=== PATIENT | female | born 2000 | race Caucasian/White ===

== ENCOUNTER 2024-10-21 09:56 | Inpatient (IN) ==
[2024-10-21] MEDS: PIPERACILLIN SODIUM/TAZOBACTAM 3.375 GM in DEXTROSE 5% IN WATER 50 ML IV SCH (11:25)
[2024-10-21] MEDS: DEXTROSE 5%-NS 1,000 ML IV SCH (11:25)
[2024-10-21 11:35] LABS: C-Reactive Protein 2.77 mg/dL (0.03-0.80)
[2024-10-21 11:39] LABS: ALT/SGPT 22 U/L (<40); AST/SGOT 19 U/L (<32); Albumin 3.8 gm/dL (3.2-5.2); Albumin/Globulin Ratio 1.3 (1.0-2.3); Alkaline Phosphatase 98 U/L (39-117); Bilirubin,Direct < 0.2 mg/dL (0-0.3); Bilirubin,Total 0.4 mg/dL (0.1-1.0); Blood Urea Nitrogen 3 mg/dL (6-20); Carbon Dioxide 26 mmol/L (22-30); Chloride 102 mmol/L (96-108); Glomerular Filtration Rate 134; Glucose 92 mg/dL (70-105); Lactate Dehydrogenase 187 U/L (135-225); Phosphorous 2.6 mg/dL (2.5-4.5); Potassium 2.9 mmol/L (3.3-5.1); Sodium 142 mmol/L (133-145); Triglycerides 91 mg/dL (<150)
[2024-10-21] MEDS: PROMETHAZINE 25 MG TABLET PO PRN (11:58)
[2024-10-21] MEDS: ONDANSETRON 4 MG/2 ML VIAL IV PRN (11:58)
[2024-10-21] MEDS: POTASSIUM CHLORIDE 40 MEQ in DEXTROSE 5% IN WATER 500 ML IV SCH (13:17)
[2024-10-21] MEDS: POTASSIUM CHLORIDE 10 MEQ/100 ML BAG IV SCH (14:02)
[2024-10-21] MEDS: 0.9 % SODIUM CHLORIDE 10 ML SYRINGE IV SCH (14:03)
[2024-10-21] MEDS: HYDROmorphone 0.5 MG/0.5 ML SYRINGE IV PRN (14:49)
[2024-10-21] MEDS: PIPERACILLIN SODIUM/TAZOBACTAM 3.375 GM in DEXTROSE 5% IN WATER 100 ML IV SCH (16:29)
[2024-10-21] MEDS: oxyCODONE IR 5 MG TABLET PO PRN (18:36)
[2024-10-21] MEDS: DOCUSATE SODIUM 100 MG CAPSULE PO SCH (20:09)
[2024-10-21] MEDS: SENNOSIDES 1 TABLET PO SCH (20:09)
[2024-10-22 06:06] LABS: Basophils # (Auto) 0.02 K/mcL (0.00-0.30); Basophils % (Auto) 0.4 % (0.0-2.0); Eosinophils # (Auto) 0.09 K/mcL (0.00-0.70); Eosinophils % (Auto) 1.8 % (0.0-7.0); Hematocrit 36.5 % (34.1-44.9); Hemoglobin 11.7 g/dL (11.2-15.7); Lymphocytes # (Auto) 2.74 K/mcL (1.50-4.80); Lymphocytes % (Auto) 53.7 % (15.5-49.0); Mean Cell Volume 87.5 fL (80.0-100.0); Mean Corpuscular HGB Conc 32.1 g/dL (31.0-36.0); Mean Platelet Volume 10.5 fL (8.8-12.5); Monocytes # (Auto) 0.44 K/mcL (0.10-0.90); Monocytes % (Auto) 8.6 % (1.0-12.0); Neutrophils % (Auto) 35.5 % (38.0-78.0); Platelet Count 246 K/mcL (140-440); RBC 4.17 M/mcL (3.59-5.38); Red Cell Distribution Width 14.2 % (11.5-14.5); WBC 5.1 K/mcL (4.5-11.0)
[2024-10-22 08:01] LABS: ALT/SGPT 42 U/L (<40); AST/SGOT 63 U/L (<32); Albumin 3.4 gm/dL (3.2-5.2); Albumin/Globulin Ratio 1.2 (1.0-2.3); Alkaline Phosphatase 93 U/L (39-117); Bilirubin,Total 0.3 mg/dL (0.1-1.0); Blood Urea Nitrogen < 2 mg/dL (6-20); Calcium 8.9 mg/dL (8.6-10.4); Carbon Dioxide 26 mmol/L (22-30); Chloride 105 mmol/L (96-108); Globulin 2.8 gm/dL (2.2-3.7); Glomerular Filtration Rate 126; Glucose 128 mg/dL (70-105); Potassium 3.2 mmol/L (3.3-5.1); Sodium 140 mmol/L (133-145)
[2024-10-22] MEDS ORDERED: fentaNYL 100 MCG/2 ML VIAL ONE (08:30)
[2024-10-22] MEDS ORDERED: KETAMINE 50 MG/ML ML ONE (08:30)
[2024-10-22] MEDS ORDERED: PROPOFOL 200 MG/20 ML VIAL IV ONE (08:30)
[2024-10-22] MEDS ORDERED: DEXAMETHASONE 10 MG/ML VIAL ONE (08:39)
[2024-10-22] MEDS ORDERED: MAGNESIUM SULFATE 2 GM/50 ML BAG IV ONE (08:39)
[2024-10-22] MEDS ORDERED: ROCURONIUM 10 MG/ML ML IV ONE (08:39)
[2024-10-22] MEDS ORDERED: LIDOCAINE 2% PF 5 ML VIAL ONE (08:39)
[2024-10-22] MEDS ORDERED: ONDANSETRON 4 MG/2 ML VIAL ONE (08:39)
[2024-10-22] MEDS ORDERED: IPRATROPIUM/ALBUTEROL 3 ML AMPUL.NEB NEB PRN (10:04)
[2024-10-22] MEDS ORDERED: HYDROmorphone 0.5 MG/0.5 ML SYRINGE IV PRN (10:04)
[2024-10-22] MEDS ORDERED: diphenhydrAMINE 50 MG/ML VIAL IV PRN (10:04)
[2024-10-22] MEDS ORDERED: METHOCARBAMOL 1,000 MG/10 ML VIAL IV PRN (10:04)
[2024-10-22] MEDS ORDERED: ONDANSETRON 4 MG/2 ML VIAL IV PRN (10:04)
[2024-10-22] MEDS ORDERED: LACTATED RINGERS 250 ML IV PRN (10:04)
[2024-10-22] MEDS ORDERED: MEPERIDINE 25 MG/ML VIAL IV PRN (10:04)
[2024-10-22] MEDS ORDERED: NALOXONE HCL 0.4 MG/ML VIAL IV PRN (10:04)
[2024-10-22] MEDS ORDERED: SUGAMMADEX SODIUM 200 MG/2 ML VIAL IV ONE (10:11)
[2024-10-22] MEDS: LACTATED RINGERS 1,000 ML IV SCH (10:37)
[2024-10-22] MEDS: ACETAMINOPHEN 1,000 MG/100 ML BAG IV ONE (10:38)
[2024-10-22] MEDS: KETOROLAC 30 MG/ML VIAL IV PRN (10:56)
[2024-10-22] MEDS: fentaNYL 100 MCG/2 ML VIAL IV PRN (10:56)
[2024-10-22] MEDS: POTASSIUM CHLORIDE 20 MEQ TABLET PO SCH (17:31)
[2024-10-22] MEDS ORDERED: POTASSIUM CHLORIDE 40 MEQ in DEXTROSE 5% IN WATER 500 ML IV SCH (17:45)
[2024-10-22] MEDS: POTASSIUM CHLORIDE 10 MEQ/100 ML BAG IV SCH (18:40)
[2024-10-22] MEDS: METOCLOPRAMIDE 10 MG/2 ML VIAL IV PRN (19:16)
[2024-10-22] MEDS ORDERED: ALBUTEROL SULFATE 60 PUFF INHALER INH PRN (20:35)
[2024-10-22] MEDS ORDERED: hydrOXYzine 25 MG TABLET PO PRN (21:09)
[2024-10-22] MEDS: PRAZOSIN 2 MG CAPSULE PO SCH (21:56)
[2024-10-22] MEDS: QUETIAPINE 200 MG PO SCH (21:59)
[2024-10-22] MEDS: GABAPENTIN 100 MG CAPSULE PO SCH (22:09)
[2024-10-22] MEDS: SUCRALFATE 1 GM/10 ML ORAL.SUSP PO SCH (23:48)
[2024-10-23] MEDS ORDERED: SUCRALFATE 1 GM/10 ML ORAL.SUSP PO SCH
[2024-10-23] MEDS: POTASSIUM CHLORIDE 10 MEQ/100 ML BAG IV SCH ×2 (05:32→17:00)
[2024-10-23 06:39] LABS: Basophils # (Auto) 0.01 K/mcL (0.00-0.30); Basophils % (Auto) 0.1 % (0.0-2.0); Eosinophils # (Auto) 0 K/mcL (0.00-0.70); Eosinophils % (Auto) 0 % (0.0-7.0); Hematocrit 37.9 % (34.1-44.9); Hemoglobin 12.2 g/dL (11.2-15.7); Lymphocytes # (Auto) 1.27 K/mcL (1.50-4.80); Lymphocytes % (Auto) 14.8 % (15.5-49.0); Mean Cell Volume 87.1 fL (80.0-100.0); Mean Corpuscular HGB Conc 32.2 g/dL (31.0-36.0); Mean Platelet Volume 10.6 fL (8.8-12.5); Monocytes # (Auto) 0.66 K/mcL (0.10-0.90); Monocytes % (Auto) 7.7 % (1.0-12.0); Neutrophils % (Auto) 77.2 % (38.0-78.0); Platelet Count 275 K/mcL (140-440); RBC 4.35 M/mcL (3.59-5.38); Red Cell Distribution Width 14.4 % (11.5-14.5); WBC 8.6 K/mcL (4.5-11.0)
[2024-10-23 07:13] LABS: ALT/SGPT 48 U/L (<40); AST/SGOT 43 U/L (<32); Albumin 3.7 gm/dL (3.2-5.2); Albumin/Globulin Ratio 1.2 (1.0-2.3); Alkaline Phosphatase 99 U/L (39-117); Bilirubin,Direct < 0.2 mg/dL (0-0.3); Bilirubin,Total 0.3 mg/dL (0.1-1.0); Blood Urea Nitrogen < 2 mg/dL (6-20); Calcium 9.3 mg/dL (8.6-10.4); Carbon Dioxide 24 mmol/L (22-30); Chloride 105 mmol/L (96-108); Glomerular Filtration Rate 134; Glucose 151 mg/dL (70-105); Lactate Dehydrogenase 201 U/L (135-225); Phosphorous 2.2 mg/dL (2.5-4.5); Potassium 3.4 mmol/L (3.3-5.1); Sodium 140 mmol/L (133-145); Triglycerides 65 mg/dL (<150); Uric Acid 1.8 mg/dL (2.5-8.0)
[2024-10-23] MEDS: PANTOPRAZOLE 40 MG VIAL IV SCH (07:59)
[2024-10-23] MEDS: PROMETHAZINE 25 MG/ML VIAL IM ONE (07:59)
[2024-10-23] MEDS: SCOPOLAMINE 1 PATCH PATCH TOPICAL ONE (08:00)
[2024-10-23] MEDS: MIRTAZAPINE 15 MG TABLET PO SCH (08:01)
[2024-10-23] MEDS: ESCITALOPRAM 20 MG TABLET PO SCH (08:01)
[2024-10-23] MEDS: NICOTINE 14 MG PATCH TD SCH (08:38)
[2024-10-23] MEDS: QUEtiapine 100 MG TABLET PO SCH (20:54)
[2024-10-23] MEDS: PRAZOSIN 1 MG CAPSULE PO SCH (20:55)
[2024-10-24] MEDS: POTASSIUM CHLORIDE 10 MEQ/100 ML BAG IV SCH ×2 (06:23→11:14)
[2024-10-24 09:54] LABS: Potassium 3.1 mmol/L (3.3-5.1)
[2024-10-25] MEDS ORDERED: MIDAZOLAM 2 MG/2 ML VIAL ONE (08:36)
[2024-10-25] MEDS ORDERED: fentaNYL 100 MCG/2 ML VIAL ONE (08:36)
[2024-10-25] MEDS ORDERED: PROPOFOL 200 MG/20 ML VIAL IV ONE (10:25)
[2024-10-25] MEDS ORDERED: ONDANSETRON 4 MG/2 ML VIAL IV ONE (10:25)
== END 2024-10-26 13:29 | disposition home or self-care (01) | DRG 418 ==
LOC: MEDSUR → OBSVTOIN 10:09
PROVIDERS: ADMIT Family Medicine Adult Medicine; ATTEND Family Medicine Adult Medicine

== ENCOUNTER 2024-12-27 11:52 | Inpatient (IN) ==
[2024-12-27] MEDS: 0.9 % SODIUM CHLORIDE 1,000 ML IV ONE (12:49)
[2024-12-27 13:02] LABS: Basophils # (Auto) 0.01 K/mcL (0.00-0.30); Basophils % (Auto) 0.2 % (0.0-2.0); Eosinophils # (Auto) 0.02 K/mcL (0.00-0.70); Eosinophils % (Auto) 0.5 % (0.0-7.0); Hematocrit 40.2 % (34.1-44.9); Hemoglobin 13.9 g/dL (11.2-15.7); Lymphocytes # (Auto) 1.74 K/mcL (1.50-4.80); Lymphocytes % (Auto) 42.8 % (15.5-49.0); Mean Cell Volume 83.2 fL (80.0-100.0); Mean Corpuscular HGB Conc 34.6 g/dL (31.0-36.0); Mean Platelet Volume 9.6 fL (8.8-12.5); Monocytes # (Auto) 0.34 K/mcL (0.10-0.90); Monocytes % (Auto) 8.4 % (1.0-12.0); Neutrophils % (Auto) 48.1 % (38.0-78.0); Platelet Count 229 K/mcL (140-440); RBC 4.83 M/mcL (3.59-5.38); Red Cell Distribution Width 14.3 % (11.5-14.5); WBC 4.1 K/mcL (4.5-11.0)
[2024-12-27] MEDS: DROPERIDOL 5 MG/2 ML VIAL IV ONE ×2 (13:16→14:54)
[2024-12-27 13:23] LABS: ALT/SGPT 76 U/L (<40); AST/SGOT 58 U/L (<32); Albumin 3.9 gm/dL (3.2-5.2); Albumin/Globulin Ratio 1.3 (1.0-2.3); Alkaline Phosphatase 91 U/L (39-117); Bilirubin,Total 0.7 mg/dL (0.1-1.0); Blood Urea Nitrogen 4 mg/dL (6-20); Calcium 9.2 mg/dL (8.6-10.4); Carbon Dioxide 22 mmol/L (22-30); Chloride 96 mmol/L (96-108); Globulin 2.9 gm/dL (2.2-3.7); Glomerular Filtration Rate 134; Glucose 80 mg/dL (70-105); Potassium 2.5 mmol/L (3.3-5.1); Sodium 140 mmol/L (133-145)
[2024-12-27] MEDS: POTASSIUM CHLORIDE 40 MEQ in DEXTROSE 5% IN WATER 500 ML IV ONE ×2 (13:32→19:42)
[2024-12-27] MEDS: POTASSIUM CHLORIDE 10 MEQ/100 ML BAG IV SCH (13:52)
[2024-12-27] MEDS: MAGNESIUM SULFATE 2 GM/50 ML BAG IV ONE (13:59)
[2024-12-27 14:06] LABS: Appearance,Urine Clear (Clear); Bacteria,Urine Few /hpf (0); Bilirubin,Urine Negative (Negative); Color,Urine Yellow; Glucose,Urine (UA) Negative (Negative); Ketones,Urine >=160 mg/dL (Negative); Leukocyte Esterase,Urine Negative /uL (Negative); Mucus,Urine Few /hpf; Nitrate,Urine Negative (Negative); PH,Urine 6.5 (5.0-9.0); Protein,Urine 30 mg/dL (Negative); Specific Gravity,Urine >= 1.030 (1.000-1.035); Urine Blood Negative ery/mcL (Negative); Urine Hyaline Cast 11 /lph (0-2); Urine RBC 2 /hpf (0-3); Urine Squamous Epithelial Cell 38 /hpf (0-4); Urine WBC 22 /hpf (0-4); Urobilinogen,Urine Normal
[2024-12-27] MEDS: PANTOPRAZOLE 40 MG VIAL IV ONE (14:55)
[2024-12-27] MEDS: DEXTROSE 5%-1/2NS 1,000 ML IV SCH (15:02)
[2024-12-27] MEDS: MAG HYDROX/AL HYDROX/SIMETH 30 ML ORAL.SUSP PO ONE (16:05)
[2024-12-27] MEDS: diphenhydrAMINE 50 MG/ML VIAL IV ONE (17:01)
[2024-12-27] MEDS: PROCHLORPERAZINE 10 MG/2 ML VIAL IV ONE ×2 (17:01→18:26)
[2024-12-27] MEDS: FAMOTIDINE 20 MG TABLET PO ONE (17:48)
[2024-12-27] MEDS: POTASSIUM CHLORIDE 20 MEQ TABLET PO ONE (17:48)
[2024-12-27] MEDS: LORazepam 2 MG/ML VIAL IV ONE (18:26)
[2024-12-27 21:11] LABS: C-Reactive Protein < 0.30 mg/dL (0.03-0.80)
[2024-12-27] MEDS: POTASSIUM CHLORIDE 20 MEQ/10 ML VIAL IV ONE (21:20)
[2024-12-27] MEDS ORDERED: POTASSIUM CHLORIDE 20 MEQ TABLET PO PRN ×2 (21:28)
[2024-12-27] MEDS ORDERED: IPRATROPIUM/ALBUTEROL 3 ML AMPUL.NEB NEB PRN (21:28)
[2024-12-27] MEDS ORDERED: POTASSIUM CHLORIDE 40 MEQ in DEXTROSE 5% IN WATER 500 ML IV PRN (21:28)
[2024-12-27] MEDS ORDERED: ACETAMINOPHEN 325 MG TABLET PO PRN (21:28)
[2024-12-27] MEDS ORDERED: SENNOSIDES 1 TABLET PO PRN (21:28)
[2024-12-27] MEDS: PANTOPRAZOLE 40 MG VIAL IV SCH (21:55)
[2024-12-27] MEDS: ONDANSETRON 4 MG/2 ML VIAL IV PRN (21:55)
[2024-12-27] MEDS: diphenhydrAMINE 50 MG/ML VIAL IV PRN (21:55)
[2024-12-27] MEDS: SCOPOLAMINE 1 PATCH PATCH TOPICAL SCH (21:55)
[2024-12-27] MEDS: 0.9 % SODIUM CHLORIDE 10 ML SYRINGE IV SCH (21:56)
[2024-12-27] MEDS: ACETAMINOPHEN 650 MG/65 ML BAG IV PRN (22:46)
[2024-12-27] MEDS: KETOROLAC 15 MG/ML VIAL IV ONE (22:46)
[2024-12-27] MEDS: ACETAMINOPHEN 1,000 MG/100 ML BAG IV ONE (23:05)
[2024-12-27] MEDS: KETOROLAC 15 MG/ML VIAL ONE (23:05)
[2024-12-27] MEDS: LORazepam 2 MG/ML VIAL IV PRN (23:55)
[2024-12-28] MEDS: 0.9 % SODIUM CHLORIDE 1,000 ML IV SCH (00:16)
[2024-12-28 06:26] LABS: ALT/SGPT 58 U/L (<40); AST/SGOT 44 U/L (<32); Albumin 3.1 gm/dL (3.2-5.2); Albumin/Globulin Ratio 1.6 (1.0-2.3); Alkaline Phosphatase 73 U/L (39-117); Bilirubin,Direct 0.4 mg/dL (<0.3); Bilirubin,Total 0.6 mg/dL (0.1-1.0); Blood Urea Nitrogen < 2 mg/dL (6-20); Calcium 8.2 mg/dL (8.6-10.4); Carbon Dioxide 23 mmol/L (22-30); Chloride 104 mmol/L (96-108); Glomerular Filtration Rate 158; Glucose 83 mg/dL (70-105); Lactate Dehydrogenase 160 U/L (135-225); Phosphorous 2.7 mg/dL (2.5-4.5); Potassium 2.9 mmol/L (3.3-5.1); Sodium 139 mmol/L (133-145); Triglycerides 49 mg/dL (<150); Uric Acid 2.3 mg/dL (2.5-8.0)
[2024-12-28] MEDS: GABAPENTIN 300 MG CAPSULE PO SCH (09:28)
[2024-12-28] MEDS: traMADol 50 MG TABLET PO PRN (09:53)
[2024-12-28] MEDS: POTASSIUM CHLORIDE 10 MEQ/100 ML BAG IV SCH ×2 (10:02→15:49)
[2024-12-28] MEDS ORDERED: IOPAMIDOL 100 ML BOTTLE IV ONE (11:04)
[2024-12-28] MEDS: SUCRALFATE 1 GM/10 ML ORAL.SUSP PO PRN (11:32)
[2024-12-28] MEDS: METOCLOPRAMIDE 10 MG/2 ML VIAL IV PRN (14:43)
[2024-12-28 20:58] LABS: Potassium 3.8 mmol/L (3.3-5.1)
[2024-12-29 06:11] LABS: Basophils # (Auto) 0.02 K/mcL (0.00-0.30); Basophils % (Auto) 0.5 % (0.0-2.0); Eosinophils # (Auto) 0.04 K/mcL (0.00-0.70); Hematocrit 34.8 % (34.1-44.9); Hemoglobin 12.3 g/dL (11.2-15.7); Lymphocytes # (Auto) 1.66 K/mcL (1.50-4.80); Lymphocytes % (Auto) 41.3 % (15.5-49.0); Mean Cell Volume 83.7 fL (80.0-100.0); Mean Corpuscular HGB Conc 35.3 g/dL (31.0-36.0); Monocytes # (Auto) 0.41 K/mcL (0.10-0.90); Monocytes % (Auto) 10.2 % (1.0-12.0); Platelet Count 187 K/mcL (140-440); RBC 4.16 M/mcL (3.59-5.38); Red Cell Distribution Width 14.6 % (11.5-14.5)
[2024-12-29 06:41] LABS: ALT/SGPT 72 U/L (<40); AST/SGOT 41 U/L (<32); Albumin 3.3 gm/dL (3.2-5.2); Albumin/Globulin Ratio 1.5 (1.0-2.3); Alkaline Phosphatase 83 U/L (39-117); Bilirubin,Direct 0.4 mg/dL (<0.3); Bilirubin,Total 0.6 mg/dL (0.1-1.0); Blood Urea Nitrogen 2 mg/dL (6-20); Calcium 8.5 mg/dL (8.6-10.4); Carbon Dioxide 23 mmol/L (22-30); Chloride 103 mmol/L (96-108); Globulin 2.2 gm/dL (2.2-3.7); Glomerular Filtration Rate 144; Glucose 90 mg/dL (70-105); Lactate Dehydrogenase 166 U/L (135-225); Phosphorous 2.8 mg/dL (2.5-4.5); Potassium 3.5 mmol/L (3.3-5.1); Sodium 138 mmol/L (133-145); Triglycerides 65 mg/dL (<150); Uric Acid 1.5 mg/dL (2.5-8.0)
[2024-12-29] MEDS: HYDROmorphone 2 MG TABLET PO PRN (09:12)
[2024-12-29] MEDS: POLYETHYLENE GLYCOL 3350 17 GM PACKET PO PRN (09:27)
[2024-12-29] MEDS: HYDROmorphone 0.5 MG/0.5 ML SYRINGE IV PRN (10:12)
[2024-12-29] MEDS: MAGNESIUM SULFATE 2 GM/50 ML BAG IV PRN (10:55)
[2024-12-30] MEDS: NICOTINE 21 MG PATCH TOPICAL SCH (12:54)
[2024-12-30] MEDS ORDERED: PROMETHAZINE 25 MG SUPP.RECT PR PRN (18:07)
[2024-12-30] MEDS: LACTATED RINGERS 1,000 ML IV SCH (18:59)
[2024-12-30 19:03] LABS: Blood Urea Nitrogen 6 mg/dL (6-20); Calcium 8.8 mg/dL (8.6-10.4); Carbon Dioxide 26 mmol/L (22-30); Chloride 96 mmol/L (96-108); Glomerular Filtration Rate 144; Glucose 83 mg/dL (70-105); Potassium 3.3 mmol/L (3.3-5.1); Sodium 137 mmol/L (133-145)
[2024-12-30] MEDS: MELATONIN 3 MG TABLET PO SCH (19:06)
[2024-12-30] MEDS: GABAPENTIN 300 MG CAPSULE PO SCH (19:55)
[2024-12-30] MEDS: DICYCLOMINE 20 MG/2 ML VIAL IM PRN (21:31)
[2024-12-31 06:43] LABS: Basophils # (Auto) 0.02 K/mcL (0.00-0.30); Basophils % (Auto) 0.4 % (0.0-2.0); Eosinophils # (Auto) 0.04 K/mcL (0.00-0.70); Eosinophils % (Auto) 0.8 % (0.0-7.0); Hematocrit 35.5 % (34.1-44.9); Hemoglobin 12.2 g/dL (11.2-15.7); Lymphocytes % (Auto) 45.9 % (15.5-49.0); Mean Cell Volume 84.3 fL (80.0-100.0); Mean Corpuscular HGB Conc 34.4 g/dL (31.0-36.0); Mean Platelet Volume 10.3 fL (8.8-12.5); Monocytes # (Auto) 0.46 K/mcL (0.10-0.90); Monocytes % (Auto) 9.6 % (1.0-12.0); Neutrophils % (Auto) 43.1 % (38.0-78.0); Platelet Count 199 K/mcL (140-440); RBC 4.21 M/mcL (3.59-5.38); Red Cell Distribution Width 14.7 % (11.5-14.5); WBC 4.8 K/mcL (4.5-11.0)
[2024-12-31 07:00] LABS: ALT/SGPT 55 U/L (<40); AST/SGOT 34 U/L (<32); Albumin 3.2 gm/dL (3.2-5.2); Albumin/Globulin Ratio 1.4 (1.0-2.3); Alkaline Phosphatase 89 U/L (39-117); Bilirubin,Direct 0.3 mg/dL (<0.3); Bilirubin,Total 0.6 mg/dL (0.1-1.0); Blood Urea Nitrogen 5 mg/dL (6-20); Calcium 8.1 mg/dL (8.6-10.4); Carbon Dioxide 25 mmol/L (22-30); Chloride 95 mmol/L (96-108); Globulin 2.3 gm/dL (2.2-3.7); Glomerular Filtration Rate 144; Glucose 78 mg/dL (70-105); Lactate Dehydrogenase 169 U/L (135-225); Phosphorous 3.4 mg/dL (2.5-4.5); Sodium 135 mmol/L (133-145); Triglycerides 125 mg/dL (<150); Uric Acid 1.6 mg/dL (2.5-8.0)
[2024-12-31] MEDS: POTASSIUM CHLORIDE 20 MEQ TABLET PO ONE ×2 (08:39→12:37)
[2024-12-31] MEDS: HALOPERIDOL LACTATE 5 MG/ML VIAL IV PRN (08:43)
[2024-12-31 10:49] LABS: Potassium 3.1 mmol/L (3.3-5.1)
[2024-12-31] MEDS: METHOCARBAMOL 1,000 MG/10 ML VIAL IV PRN (11:12)
[2024-12-31] MEDS: LACTATED RINGERS 1,000 ML IV SCH (11:53)
[2024-12-31] MEDS: POTASSIUM CHLORIDE 10 MEQ/100 ML BAG IV SCH (11:53)
[2024-12-31] MEDS: diphenhydrAMINE 50 MG/ML VIAL IV PRN (11:55)
[2024-12-31] MEDS: POTASSIUM CHLORIDE 40 MEQ in DEXTROSE 5% IN WATER 500 ML IV ONE (12:36)
[2024-12-31] MEDS: LORazepam 2 MG/ML VIAL IV PRN (14:23)
[2024-12-31] MEDS: CAPSAICIN 0.025% CREAM.TOP 60GM TOPICAL PRN (16:22)
[2024-12-31] MEDS: HYDROmorphone 1 MG/ML SYRINGE IV PRN (23:11)
[2025-01-01 06:41] LABS: Basophils # (Auto) 0.03 K/mcL (0.00-0.30); Basophils % (Auto) 0.5 % (0.0-2.0); Eosinophils # (Auto) 0.12 K/mcL (0.00-0.70); Eosinophils % (Auto) 2.1 % (0.0-7.0); Hematocrit 35.4 % (34.1-44.9); Lymphocytes # (Auto) 2.41 K/mcL (1.50-4.80); Lymphocytes % (Auto) 41.8 % (15.5-49.0); Mean Cell Volume 85.5 fL (80.0-100.0); Mean Corpuscular HGB Conc 33.9 g/dL (31.0-36.0); Mean Platelet Volume 10.3 fL (8.8-12.5); Monocytes # (Auto) 0.51 K/mcL (0.10-0.90); Monocytes % (Auto) 8.9 % (1.0-12.0); Neutrophils % (Auto) 46.5 % (38.0-78.0); Platelet Count 176 K/mcL (140-440); RBC 4.14 M/mcL (3.59-5.38); Red Cell Distribution Width 14.7 % (11.5-14.5); WBC 5.8 K/mcL (4.5-11.0)
[2025-01-01 06:57] LABS: ALT/SGPT 51 U/L (<40); AST/SGOT 47 U/L (<32); Albumin 3.1 gm/dL (3.2-5.2); Albumin/Globulin Ratio 1.3 (1.0-2.3); Alkaline Phosphatase 94 U/L (39-117); Bilirubin,Direct 0.3 mg/dL (<0.3); Bilirubin,Total 0.5 mg/dL (0.1-1.0); Blood Urea Nitrogen 4 mg/dL (6-20); Calcium 8.4 mg/dL (8.6-10.4); Carbon Dioxide 25 mmol/L (22-30); Chloride 98 mmol/L (96-108); Globulin 2.4 gm/dL (2.2-3.7); Glomerular Filtration Rate 144; Glucose 79 mg/dL (70-105); Lactate Dehydrogenase 186 U/L (135-225); Phosphorous 3.2 mg/dL (2.5-4.5); Potassium 3.6 mmol/L (3.3-5.1); Sodium 136 mmol/L (133-145); Triglycerides 120 mg/dL (<150); Uric Acid 1.8 mg/dL (2.5-8.0)
[2025-01-02 06:45] LABS: ALT/SGPT 45 U/L (<40); AST/SGOT 31 U/L (<32); Albumin 3.3 gm/dL (3.2-5.2); Albumin/Globulin Ratio 1.3 (1.0-2.3); Alkaline Phosphatase 100 U/L (39-117); Bilirubin,Direct 0.3 mg/dL (<0.3); Bilirubin,Total 0.6 mg/dL (0.1-1.0); Blood Urea Nitrogen 4 mg/dL (6-20); Calcium 8.6 mg/dL (8.6-10.4); Carbon Dioxide 24 mmol/L (22-30); Chloride 97 mmol/L (96-108); Globulin 2.6 gm/dL (2.2-3.7); Glomerular Filtration Rate 144; Glucose 78 mg/dL (70-105); Lactate Dehydrogenase 179 U/L (135-225); Potassium 3.2 mmol/L (3.3-5.1); Sodium 137 mmol/L (133-145); Triglycerides 126 mg/dL (<150)
[2025-01-02 08:07] LABS: Basophils # (Auto) 0.02 K/mcL (0.00-0.30); Basophils % (Auto) 0.3 % (0.0-2.0); Eosinophils # (Auto) 0.09 K/mcL (0.00-0.70); Eosinophils % (Auto) 1.4 % (0.0-7.0); Hematocrit 36.6 % (34.1-44.9); Hemoglobin 12.6 g/dL (11.2-15.7); Lymphocytes # (Auto) 1.79 K/mcL (1.50-4.80); Lymphocytes % (Auto) 26.9 % (15.5-49.0); Mean Cell Volume 84.5 fL (80.0-100.0); Mean Corpuscular HGB Conc 34.4 g/dL (31.0-36.0); Monocytes % (Auto) 10.5 % (1.0-12.0); Neutrophils % (Auto) 60.6 % (38.0-78.0); Platelet Count 184 K/mcL (140-440); RBC 4.33 M/mcL (3.59-5.38); Red Cell Distribution Width 14.7 % (11.5-14.5); WBC 6.7 K/mcL (4.5-11.0)
[2025-01-02] MEDS: SUCRALFATE 1 GM/10 ML ORAL.SUSP PO SCH (09:58)
[2025-01-02] MEDS: POTASSIUM CHLORIDE 20 MEQ PACKET PO ONE (09:58)
[2025-01-02] MEDS: PROCHLORPERAZINE 10 MG/2 ML VIAL IV PRN (10:03)
[2025-01-02] MEDS: ONDANSETRON 4 MG/2 ML VIAL IV PRN (11:10)
[2025-01-02] MEDS: DEXTROSE 5%-LR 1,000 ML IV SCH (11:11)
[2025-01-02] MEDS: HYDROmorphone 2 MG TABLET PO PRN (23:47)
[2025-01-03 07:22] LABS: Basophils # (Auto) 0.01 K/mcL (0.00-0.30); Basophils % (Auto) 0.2 % (0.0-2.0); Eosinophils # (Auto) 0.04 K/mcL (0.00-0.70); Eosinophils % (Auto) 0.9 % (0.0-7.0); Hematocrit 35.3 % (34.1-44.9); Hemoglobin 12.2 g/dL (11.2-15.7); Lymphocytes # (Auto) 1.56 K/mcL (1.50-4.80); Lymphocytes % (Auto) 33.2 % (15.5-49.0); Mean Cell Volume 83.3 fL (80.0-100.0); Mean Corpuscular HGB Conc 34.6 g/dL (31.0-36.0); Mean Platelet Volume 10.2 fL (8.8-12.5); Monocytes % (Auto) 12.8 % (1.0-12.0); Neutrophils % (Auto) 52.9 % (38.0-78.0); Platelet Count 191 K/mcL (140-440); RBC 4.24 M/mcL (3.59-5.38); Red Cell Distribution Width 14.4 % (11.5-14.5); WBC 4.7 K/mcL (4.5-11.0)
[2025-01-03 08:08] LABS: ALT/SGPT 35 U/L (<40); AST/SGOT 19 U/L (<32); Albumin 3.3 gm/dL (3.2-5.2); Albumin/Globulin Ratio 1.2 (1.0-2.3); Alkaline Phosphatase 95 U/L (39-117); Bilirubin,Direct 0.3 mg/dL (<0.3); Bilirubin,Total 0.6 mg/dL (0.1-1.0); Blood Urea Nitrogen 2 mg/dL (6-20); Calcium 8.7 mg/dL (8.6-10.4); Carbon Dioxide 25 mmol/L (22-30); Chloride 98 mmol/L (96-108); Globulin 2.8 gm/dL (2.2-3.7); Glomerular Filtration Rate 158; Glucose 109 mg/dL (70-105); Lactate Dehydrogenase 168 U/L (135-225); Potassium 2.6 mmol/L (3.3-5.1); Sodium 138 mmol/L (133-145); Triglycerides 87 mg/dL (<150); Uric Acid 1.7 mg/dL (2.5-8.0)
[2025-01-03] MEDS: POTASSIUM CHLORIDE 20 MEQ PACKET PO ONE (08:58)
[2025-01-03] MEDS: POTASSIUM CHLORIDE 10 MEQ/100 ML BAG IV SCH ×2 (08:58→15:17)
[2025-01-03] MEDS: POTASSIUM CHLORIDE 40 MEQ in DEXTROSE 5% IN WATER 500 ML IV ONE ×2 (09:11→15:26)
[2025-01-03] MEDS: POTASSIUM CHLORIDE 20 MEQ TABLET PO ONE (09:47)
[2025-01-03 11:35] LABS: Appearance,Urine Clear (Clear); Bilirubin,Urine Negative (Negative); Color,Urine Yellow; Glucose,Urine (UA) Negative (Negative); Ketones,Urine Negative (Negative); Leukocyte Esterase,Urine Small /uL (Negative); Nitrate,Urine Negative (Negative); PH,Urine 8.5 (5.0-9.0); Protein,Urine Negative (Negative); Specific Gravity,Urine 1.015 (1.000-1.035); Urine Blood Trace-intact ery/mcL (Negative); Urine RBC 0 /hpf (0-3); Urine Squamous Epithelial Cell 5 /hpf (0-4); Urine Transitional Epi Cells 1 /hpf (0-2); Urine WBC 3 /hpf (0-4)
[2025-01-03 13:43] LABS: Calcium,Urine Random 9.1 mg/dL; Calcium/Creatinine Ratio,Urine 0.23 mg/mg (0.00-0.20); Creatinine,Urine Random 39.6 mg/dL (28.0-217.0)
[2025-01-03 14:34] LABS: Potassium 3.4 mmol/L (3.3-5.1)
[2025-01-03 20:15] LABS: Potassium 3.8 mmol/L (3.3-5.1)
[2025-01-03] MEDS ORDERED: IOPAMIDOL 100 ML BOTTLE IV ONE (23:10)
[2025-01-03 23:55] LABS: Blood Urea Nitrogen < 2 mg/dL (6-20); Calcium 8.8 mg/dL (8.6-10.4); Carbon Dioxide 22 mmol/L (22-30); Chloride 101 mmol/L (96-108); Glomerular Filtration Rate 144; Glucose 129 mg/dL (70-105); Potassium 3.3 mmol/L (3.3-5.1); Sodium 137 mmol/L (133-145)
[2025-01-04 00:04] LABS: Amphetamine Screen,Urine None detected; Barbiturate Screen,Urine None detected; Benzodiazepines Screen,Urine None detected; Cannabinoid Screen,Urine Suspect Positive; Cocaine Screen,Urine None detected; Fentanyl, Urine Screen None Detected; Opiate Screen,Urine None detected; Oxycodone, Urine Screen None detected; Phencyclidine Screen,Urine None detected
[2025-01-04] MEDS: diphenhydrAMINE 50 MG/ML VIAL IV PRN (00:16)
[2025-01-04] MEDS: diphenhydrAMINE 50 MG/ML VIAL ONE (00:19)
[2025-01-04] MEDS: POTASSIUM PHOSPHATE 20 MEQ in DEXTROSE 5% IN WATER 250 ML IV ONE (01:09)
[2025-01-04] MEDS: POTASSIUM PHOSPHATE 66 MEQ/15 ML VIAL IV ONE (01:14)
[2025-01-04 06:46] LABS: Basophils # (Auto) 0.01 K/mcL (0.00-0.30); Basophils % (Auto) 0.2 % (0.0-2.0); Eosinophils # (Auto) 0.05 K/mcL (0.00-0.70); Eosinophils % (Auto) 0.8 % (0.0-7.0); Hematocrit 37.3 % (34.1-44.9); Hemoglobin 12.9 g/dL (11.2-15.7); Lymphocytes # (Auto) 2.11 K/mcL (1.50-4.80); Lymphocytes % (Auto) 33.2 % (15.5-49.0); Mean Cell Volume 83.1 fL (80.0-100.0); Mean Corpuscular HGB Conc 34.6 g/dL (31.0-36.0); Mean Platelet Volume 9.9 fL (8.8-12.5); Monocytes # (Auto) 0.79 K/mcL (0.10-0.90); Monocytes % (Auto) 12.4 % (1.0-12.0); Neutrophils % (Auto) 53.2 % (38.0-78.0); Platelet Count 220 K/mcL (140-440); RBC 4.49 M/mcL (3.59-5.38); Red Cell Distribution Width 14.6 % (11.5-14.5); WBC 6.4 K/mcL (4.5-11.0)
[2025-01-04 07:08] LABS: ALT/SGPT 28 U/L (<40); AST/SGOT 19 U/L (<32); Albumin 3.4 gm/dL (3.2-5.2); Albumin/Globulin Ratio 1.1 (1.0-2.3); Alkaline Phosphatase 97 U/L (39-117); Bilirubin,Direct 0.4 mg/dL (<0.3); Bilirubin,Total 0.7 mg/dL (0.1-1.0); Blood Urea Nitrogen < 2 mg/dL (6-20); Calcium 8.9 mg/dL (8.6-10.4); Carbon Dioxide 23 mmol/L (22-30); Chloride 98 mmol/L (96-108); Glomerular Filtration Rate 158; Glucose 104 mg/dL (70-105); Lactate Dehydrogenase 175 U/L (135-225); Phosphorous 3.6 mg/dL (2.5-4.5); Potassium 2.9 mmol/L (3.3-5.1); Sodium 137 mmol/L (133-145); Triglycerides 89 mg/dL (<150); Uric Acid 1.3 mg/dL (2.5-8.0)
[2025-01-04] MEDS: POTASSIUM CHLORIDE 20 MEQ TABLET PO ONE ×2 (08:09→19:51)
[2025-01-04] MEDS: MAGNESIUM SULFATE 2 GM/50 ML BAG IV ONE (09:08)
[2025-01-04] MEDS: POTASSIUM CHLORIDE 10 MEQ/100 ML BAG IV SCH (09:08)
[2025-01-04] MEDS: POTASSIUM CHLORIDE 40 MEQ in DEXTROSE 5% IN WATER 500 ML IV ONE (15:39)
[2025-01-04 16:43] LABS: ALT/SGPT 35 U/L (<40); AST/SGOT 33 U/L (<32); Albumin 3.4 gm/dL (3.2-5.2); Albumin/Globulin Ratio 1.1 (1.0-2.3); Alkaline Phosphatase 99 U/L (39-117); Bilirubin,Direct 0.4 mg/dL (<0.3); Bilirubin,Total 0.6 mg/dL (0.1-1.0); Blood Urea Nitrogen < 2 mg/dL (6-20); Calcium 8.9 mg/dL (8.6-10.4); Carbon Dioxide 23 mmol/L (22-30); Chloride 100 mmol/L (96-108); Glomerular Filtration Rate 144; Glucose 106 mg/dL (70-105); Lactate Dehydrogenase 174 U/L (135-225); Phosphorous 2.5 mg/dL (2.5-4.5); Potassium 3.8 mmol/L (3.3-5.1); Sodium 136 mmol/L (133-145); Triglycerides 84 mg/dL (<150); Uric Acid 1.1 mg/dL (2.5-8.0)
[2025-01-04] MEDS: POTASSIUM CHLORIDE 20 MEQ TABLET PO SCH (19:12)
[2025-01-05 06:45] LABS: Basophils # (Auto) 0.02 K/mcL (0.00-0.30); Basophils % (Auto) 0.2 % (0.0-2.0); Eosinophils # (Auto) 0.09 K/mcL (0.00-0.70); Eosinophils % (Auto) 1.1 % (0.0-7.0); Hematocrit 42.2 % (34.1-44.9); Hemoglobin 14.3 g/dL (11.2-15.7); Lymphocytes # (Auto) 3.48 K/mcL (1.50-4.80); Lymphocytes % (Auto) 42.6 % (15.5-49.0); Mean Cell Volume 84.6 fL (80.0-100.0); Mean Corpuscular HGB Conc 33.9 g/dL (31.0-36.0); Mean Platelet Volume 9.4 fL (8.8-12.5); Monocytes # (Auto) 0.75 K/mcL (0.10-0.90); Monocytes % (Auto) 9.2 % (1.0-12.0); Neutrophils % (Auto) 46.8 % (38.0-78.0); Platelet Count 269 K/mcL (140-440); RBC 4.99 M/mcL (3.59-5.38); Red Cell Distribution Width 15.4 % (11.5-14.5); WBC 8.2 K/mcL (4.5-11.0)
[2025-01-05 06:58] LABS: ALT/SGPT 46 U/L (<40); AST/SGOT 52 U/L (<32); Albumin 3.4 gm/dL (3.2-5.2); Alkaline Phosphatase 113 U/L (39-117); Bilirubin,Direct 0.4 mg/dL (<0.3); Bilirubin,Total 0.8 mg/dL (0.1-1.0); Blood Urea Nitrogen 3 mg/dL (6-20); Calcium 8.9 mg/dL (8.6-10.4); Carbon Dioxide 22 mmol/L (22-30); Chloride 100 mmol/L (96-108); Globulin 3.3 gm/dL (2.2-3.7); Glomerular Filtration Rate 134; Glucose 94 mg/dL (70-105); Lactate Dehydrogenase 217 U/L (135-225); Phosphorous 2.4 mg/dL (2.5-4.5); Potassium 4.2 mmol/L (3.3-5.1); Sodium 136 mmol/L (133-145); Triglycerides 75 mg/dL (<150); Uric Acid 1.2 mg/dL (2.5-8.0)
[2025-01-06 02:42] LABS: ALT/SGPT 54 U/L (<40); AST/SGOT 44 U/L (<32); Albumin 3.9 gm/dL (3.2-5.2); Alkaline Phosphatase 130 U/L (39-117); Bilirubin,Direct 0.5 mg/dL (<0.3); Bilirubin,Total 0.9 mg/dL (0.1-1.0); Blood Urea Nitrogen 7 mg/dL (6-20); Carbon Dioxide 19 mmol/L (22-30); Chloride 100 mmol/L (96-108); Globulin 3.8 gm/dL (2.2-3.7); Glomerular Filtration Rate 134; Glucose 114 mg/dL (70-105); Lactate Dehydrogenase 192 U/L (135-225); Phosphorous 3.1 mg/dL (2.5-4.5); Potassium 3.8 mmol/L (3.3-5.1); Sodium 137 mmol/L (133-145); Triglycerides 117 mg/dL (<150); Uric Acid 1.8 mg/dL (2.5-8.0)
[2025-01-06 07:01] LABS: ALT/SGPT 56 U/L (<40); AST/SGOT 46 U/L (<32); Albumin/Globulin Ratio 1.1 (1.0-2.3); Alkaline Phosphatase 136 U/L (39-117); Bilirubin,Direct 0.5 mg/dL (<0.3); Blood Urea Nitrogen 8 mg/dL (6-20); Carbon Dioxide 23 mmol/L (22-30); Chloride 98 mmol/L (96-108); Globulin 3.8 gm/dL (2.2-3.7); Glomerular Filtration Rate 134; Glucose 105 mg/dL (70-105); Lactate Dehydrogenase 238 U/L (135-225); Phosphorous 3.4 mg/dL (2.5-4.5); Potassium 3.9 mmol/L (3.3-5.1); Sodium 137 mmol/L (133-145); Triglycerides 129 mg/dL (<150); Uric Acid 1.8 mg/dL (2.5-8.0)
[2025-01-06 07:17] LABS: Basophils # (Auto) 0.02 K/mcL (0.00-0.30); Basophils % (Auto) 0.3 % (0.0-2.0); Eosinophils # (Auto) 0.04 K/mcL (0.00-0.70); Eosinophils % (Auto) 0.5 % (0.0-7.0); Hematocrit 47.1 % (34.1-44.9); Hemoglobin 16.1 g/dL (11.2-15.7); Lymphocytes # (Auto) 3.08 K/mcL (1.50-4.80); Mean Cell Volume 84.3 fL (80.0-100.0); Mean Corpuscular HGB Conc 34.2 g/dL (31.0-36.0); Mean Platelet Volume 9.4 fL (8.8-12.5); Monocytes # (Auto) 0.69 K/mcL (0.10-0.90); Monocytes % (Auto) 9.2 % (1.0-12.0); Neutrophils % (Auto) 48.7 % (38.0-78.0); Platelet Count 325 K/mcL (140-440); RBC 5.59 M/mcL (3.59-5.38); Red Cell Distribution Width 15.5 % (11.5-14.5); WBC 7.5 K/mcL (4.5-11.0)
[2025-01-06] MEDS ORDERED: diphenhydrAMINE 25 MG CAPSULE PO PRN ×2 (09:05→11:14)
[2025-01-06] MEDS: MIRTAZAPINE 15 MG TABLET PO SCH (10:54)
[2025-01-06] MEDS: ESCITALOPRAM 20 MG TABLET PO SCH (10:54)
[2025-01-06] MEDS ORDERED: PRAZOSIN 1 MG CAPSULE PO SCH (21:00)
== END 2025-01-06 18:41 | disposition home or self-care (01) | DRG 641 ==
LOC: ED 11:52 → MEDSUR 21:26
PROVIDERS: ADMIT Internal Medicine; ATTEND Student in an Organized Health Care Education/Training Program